=== PATIENT | female | born 1990 | race Caucasian/White ===

== ENCOUNTER 2016-06-10 03:17 | Inpatient (IN) | payer OTHER ==
[~2016-06-10] VITALS: Ht 160 cm; Wt 80.7 kg
[2016-06-10] MEDS ORDERED: Oxytocin 30 Units/500 mL LR 30 UNITS in IV Premix 1 EACH IV PRN ×2 (03:50→12:50)
[2016-06-10] MEDS ORDERED: Carboprost 250 mCg/mL Inj IM PRN ×2 (03:50→12:50)
[2016-06-10] MEDS ORDERED: Oxytocin 10 Unit/mL Inj IM PRN ×2 (03:50→12:50)
[2016-06-10] MEDS ORDERED: Hemorrhage Kit, Post Partum XX ONE ×2 (03:50→12:50)
[2016-06-10] MEDS ORDERED: Sodium Chloride LOK Flush 10 mL Syringe IVFLUSH PRN (03:50)
[2016-06-10] MEDS ORDERED: Methylergonovine 0.2 mg/mL Inj IM PRN ×2 (03:50→12:50)
[2016-06-10] MEDS: Lactated Ringer's 1,000 ML IV PRN ×2 (04:27→05:34)
[2016-06-10 04:51] LABS: Mean Corpuscular Hemoglobin 27.5 pg (27.0-35.0); Mean Corpuscular Volume 86.3 fL (81-100)
--- NOTE | 2016-06-10 05:16 | PCM.HPANE ---
Patient Data Surgeon Admitting Provider:Navya Ceja MD Attending Provider:Navya Ceja MD Primary Care Physician:Navya Ceja MD Other Provider:Aren Amaro Anesthesia Reason for Visit Term Labor TERM LABOR Ht/WT & BMI Body Mass Index Allergies Coded Allergies: No Known Allergies (Unverified , 11/23/15) Diabetes History Hx Diabetes?: No History Cardiovascular History: Denies:: Congestive Heart Failure Hypertension Respiratory History: Denies:: Tuberculosis Hx Surgeries?: Yes (TRACH due to Xochitl Solorio.) Hx Diabetes: No Hx Alcohol Use: YesHx Substance Use: No Smoking Status: Never Smoker Stop/Bang Risk Assessment Category Category 1A: Patient has history of documented sleep apnea, and HAS NOT received any narcotic, sedative or anesthesia administration during this stay. Category 1B: Patient has history of documented sleep apnea, and HAS received any narcotic , sedative or anesthesia administration during this stay Category 2: Patient has SUSPECTED Obstructive Sleep Apnea, and HAS received any narcotic , sedative or anesthesia administration during this stay. Category 3: Patient has SUSPECTED Obstructive Sleep Apnea and HAS NOT received narcotic, sedative or anesthesia administration during this stay. Category 4: Outpatient in Procedural Areas with known sleep apnea or who screen positive for High Risk via the STOP/BANG questionnaire. Exam Exam General Appearance: Alert, Oriented X3, Cooperative HEENT/AIRWAY: MP 2, Neck Movement (from), Mouth Opening (wnl) Lungs: Clear to Auscultation Heart: Exam Unremarkable Meds/Labs/Diagnostics Labs Test 06/10/16 04:03 White Blood Count 16.7th/mm3 (3.8-10.1) Red Blood Count 4.00mil/mm3 (3.90-5.20) Hemoglobin 11.0g/dL (12.0-15.6) Hematocrit 34.5% (35.0-46.0) Mean Corpuscular Volume 86.3fL (81-100) Mean Corpuscular Hemoglobin 27.5pg (27.0-35.0) Mean Corpuscular Hemoglobin Concent 31.9% (32.0-37.0) Red Cell Distribution Width 15.8% (12.3-15.4) Platelet Count 238bil/L (150-400) Plan Impression Patient chart reviewed, patient interviewed and anesthestic plan with risks, benefits, and alternatives discussed, and informed consent obtained. ASA Physical Status: ASA2 Mod Systemic Disease Anesthetic Plan: Epidural Bene/Risks/Altern/Consents: Yes HP Complete Prior to Induction: Yes Rigo Sandoval MD Jun 10, 2016 05:16
[2016-06-10] MEDS ORDERED: fentaNYL 2 mCg/mL-Bupivicaine 0.125% 100 mL Premix EPIDURAL ONE (05:40)
[2016-06-10] MEDS ORDERED: fentaNYL 2 mCg/mL-Bupiv 0.125% 100 ML EPIDURAL SCH ×2 (06:45→06:50)
[2016-06-10] MEDS ORDERED: Atropine 1 mg/10 mL (Code) Syringe IVPUSH PRN ×2 (06:45→06:50)
[2016-06-10] MEDS ORDERED: Lactated Ringer's 1,000 ML IV SCH ×2 (06:45→06:47)
[2016-06-10] MEDS ORDERED: EPHEDrine Sulfate 50 mg/mL Inj IVPUSH PRN ×2 (06:45→06:50)
[2016-06-10] MEDS ORDERED: Ondansetron 2 mg/mL 2 mL Inj IVPUSH PRN ×2 (06:45→06:50)
[2016-06-10] MEDS ORDERED: Lactated Ringer's 500 ML IV ONE ×2 (06:45→06:47)
--- NOTE | 2016-06-10 06:50 | PCM.ANEP1 ---
Post Anesthesia Phase 1 PACU Phase 1 Assessment Anesthetic Administered: Epidural Level of Alertness: Awake, talking JUNIOR's with Equal Strength: Yes Pain: No Nausea or Vomiting: No Oxygen Delivery: Room Air Lungs: Normal Air Movement Rigo Sandoval MD Jun 10, 2016 06:50
--- NOTE | 2016-06-10 07:57 | PCM.HPOB ---
Subjective Date of Service: Jun 10, 2016 Referring Provider: Admitting Physician: Navya Ceja MD Primary Care Physician: Navya Ceja MD Attending Physician: Navya Ceja MD Chief Complaint Painful frequent contractions at term History of Present History of Present Illness Patient is a very pleasant 26-year-old who has had regular care and has an EDC of 06/10/2016. She has been into the center several times over the last few days for labor checks and was effacing her cervix and dilating 1-2 cm. heart rate was reactive with baseline in the 120s to 130s and good variability. Over the course of the afternoon and evening yesterday her contractions picked up and were much more painful and frequent. She came to the center after midnight in the early hours and was 4 cm dilated 90% effaced, membranes intact, vertex presentation, and having bloody show. She was admitted and has received an epidural which is working very nicely. Patient was just examined and is 9 cm 100% effaced and vertex is at 0 station. She is not feeling any urge to push. We are currently placing a Peterson catheter to empty her bladder and will leave this and while she labors on down. Pelvis is adequate and heart rate is reactive with baseline in the 120s. There is good hvdf-qb-bjjq variability and no decelerations. Mother is GBS negative and normotensive with no history of gestational diabetes. OB History: (1), Para (0), Term (0), Pre-term (0), ( 0), Living (0) Obstetrical Complications: None Past Medical History Obstetrical History: This is her first and is a planned and wanted baby. Menses are monthly and last around 5 days. They are using condoms for contraception. She has poor tolerance of control pills as the hormones did not agree well with her. Gynecologic History: She has no history of abnormal Pap smears or STDs. 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 She received a tracheotomy and that was removed before discharge. 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 The did give her plasmapheresis. She has fully recovered apart from a mild bilateral foot drop. Surgical History: Tracheotomy is her only previous surgical procedure along with plasmapheresis. Social History: She is single and has a high school graduation. 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 She does not smoke and had a couple of drinks before she realized she was . She denies any street drug use. Hx Tobacco Use: No Hx Alcohol Use: No Hx Substance Use: No Past Family History Living Arrangement: with Family Genetic Screening/Counseling Genetic Screening/Counseling: Negative Baby father-had child w defect: No Review of Systems Constitutional: Y: Change of appitite, Chills, Fever Eyes: Denies: Blurred Vision, Double Vision ENT: Denies: Dental Problems, Dysphagia, Nasal Congestion, Nose Discharge, Ulcers/Sores in Mouth Cardiovascular: Denies: Chest Pain Respiratory: Denies: Cough Gastrointestinal: Denies: Abdominal Pain, Constipation, Diarrhea, Epigastric pain (she is thank you), Nausea, Vomiting Genitourinary: Denies: Dysuria, Hematuria Musculoskeletal: Denies: Back Pain, Neck Pain Skin/Breasts: Denies: Discharge Skin: Denies: Bruising, Jaundice Neurological: Denies: Change in Speech, Dizziness Psychologic: Denies: Agitation, Anxious, Depression Hematologic: Denies: Adenopathy Allergy Coded Allergies: No Known Allergies (Unverified , 11/23/15) Exam Vital Signs Vital Signs Date Time Temp Pulse Resp B/P Pulse Ox O2 Delivery O2 Flow Rate FiO2 06/10/16 06:50 Room Air Constitutional: Well-developed, Well-nourished HEENT: Atraumatic, PERRLA Lungs: Clear to Auscultation, Normal Air Movement Heart: Regular Rate/Rhythm, Normal S1, Normal S2, No Murmurs/Rubs/Gallops Abdomen: Gravid, Normal bowel sounds, Soft, No tenderness, No hepatosplenomegaly Extremities: Pulses Palpable x4, Warm, No Edema Skin: Rashes Neurological/Psychiatric: Alert, Oriented X3, Cooperative, No Acute Distress Neuro: Grossly Neurologically Intact Labs/Diagnostics Labs Her blood type is AB+ with no abnormal antibodies. Her Pap smear was negative. Varicella is non-immune, rubella is immune. RPR was nonreactive, urine culture was negative, hepatitis B surface antigen was negative and HIV was negative. Hepatitis C was less than 0.1 and TSH was low at 0.2-4. GC chlamydia was negative. Her 1 hour GTT was 98. GBS was negative. She had a first trimester ultrasound on 11/25/2015 placing her at 11 wakes with a live intrauterine and no maternal hydronephrosis. There was a right corpus luteum cyst. Patient was also seen at [facility] because of her history of Guillain-Adams. She had several level II ultrasounds which were all entirely normal. The earlier ultrasounds showed a low-lying placenta which was completely resolved and out of the way by 02/03/2016 ultrasound. Maternal Blood Type: AB Hx Rho(D) Immune Globulin: No Antibody Screen: negative Group B Strep Results: Negative Previous Infant with GBS: No Rubella: Immune Lab History: Negative for: Hx Chicken Pox, Hx Gonorrhea, Hx HIV, Hx Herpes, Hx Syphilis OB Intrapartum Assessment/Plan Assessment Patient is a very pleasant 26-year-old at 40 weeks today who has been in prodromal labor the last 1-2 days and presented in active labor overnight. heart rate is reactive with baseline in the 120s to 130s and good beat-to- beat variability. She has received an epidural a couple of hours ago and AROM was done for clear fluid and showed her to be on a percent effaced, 9 cm dilated and vertex at spines. Peterson catheter is being placed and she will be allowed to labor on down and she has no urge to push currently. She has a gynecoid pelvis and estimated weight is 7-1/2 pounds. Vaginal delivery is anticipated. Problems: (1) 40 weeks gestation of Status: Acute ICD Code: Z3A.40 (2) History of Guillain-[place] syndrome Status: Resolved ICD Code: Z86.69 Pain Evaluation: Adequate Pain Control Navya Ceja MD Jun 10, 2016 07:56
[2016-06-10] MEDS ORDERED: Sodium Chloride LOK Flush 10 mL Syringe IVFLUSH SCH ×2 (08:30)
[2016-06-10] MEDS ORDERED: Benzocaine (Dermoplast) 20% 60 Gm Spray TOPICAL PRN (12:50)
[2016-06-10] MEDS ORDERED: LANOlin HPA 7 Gm Ointment TOPICAL PRN (12:50)
[2016-06-10] MEDS: Lactated Ringer's 1,000 ML IV SCH ×2 (12:50→20:50)
[2016-06-10] MEDS ORDERED: HYDROcodone-APAP 5-325 mg Tablet PO PRN (12:50)
[2016-06-10] MEDS ORDERED: Witch Hazel-Glycerin Pads TOPICAL PRN (12:50)
--- NOTE | 2016-06-10 12:59 | PCM.OBVAG ---
Vaginal Delivery Date of Service Jun 10, 2016 Pre Operative Diagnosis Pre Operative Diagnosis 1. at 40 weeks with spontaneous labor 2. History of Guillain-Rader syndrome 3. Epidural analgesia 4. Spontaneous vaginal delivery of a live born male Post Operative Diagnosis Post Operative Diagnosis 1. at 40 weeks gestational age with spontaneous labor 2. History of Guillain-Rader syndrome 3. Epidural analgesia 4. Spontaneous vaginal delivery of a live born male infant Procedure Obstetical Procedure: Normal Spontaneous Vaginal Delivery, Episiotomy, Repair of Perineal Tear (1st degree) Rest Room Matron/Patient Services Specialist Provider and Patient Services Specialist: Dr. Navya Ceja Indication for Procedure Induction: Active labor, AROM, Progressed normally through labor Findings Obstetrical Findings: (Male), Cord (3 Vessel), Presentation (SCARLET), 1 minute (7), 5 minutes (9), Placenta (Intact/Normal) Analgesia/Medications Obstetrical Anesthesia: Epidural Procedure Details Procedure Details Patient is a pleasant 26-year-old with an EDC of 06/10/2016. She has had regular care and has been into the center several times the last couple of days with prodromal labor. Her contractions picked up a lot over the afternoon and evening and she started with regular painful contractions just before midnight. She came to the center in the early hours of 06/10/2016 and was 4 cm dilated, vertex presentation, 90% effaced, and nannette regularly. She had an epidural placed which worked very nicely her. Her first stage of labor was 11 hours, second stage was 2 hours and 7 minutes, third stage was 6 minutes. She reached complete dilation at 1000 hrs. but was allowed to labor down for one hour. She only pushed just over an hour and brought the baby down nicely. She went onto spontaneous vaginal delivery of a live born male with Apgars of 8 at 1 minute and 9 at 5 minutes. weight is pending at time of this dictation but he is clinically 7-1/2 pound range. There was a loose nuchal cord that the baby delivered through and there was some terminal meconium. Fluid had otherwise remained clear throughout labor and delivery. The baby had developed some early decelerations as well as some variable decelerations down to the 80s as the head was descending. Variability remained good and he tolerated labor well. Baby was born at 12:07 hrs and the placenta delivered at 12:13 hrs. the placenta was intact with a three-vessel cord and my estimated blood loss at time of delivery was 350 mils. Mother had a very tight hymen and had a first-degree tear of the right labia along this area. I also cut a second-degree midline episiotomy to help facilitate delivery of the head and there was no extension of this. The first- degree tear was repaired with 4-0 Vicryl and the second-degree episiotomy was repaired with 3-0 chromic to achieve good cosmesis and hemostasis. Mom is breast-feeding her baby at this time and routine care is anticipated for both of them. GBS was negative. Specimen Placenta was intact and was for routine disposal Blood Loss & Administration Estimated Blood Loss: 350 Blood Admin during procedure: No Post Procedure Plan Post delivery Condition: Mom radha Navya Ceja MD Jun 10, 2016 12:59
--- NOTE | 2016-06-10 17:35 | PCM.ANEP2 ---
Post Anesthesia Evaluation ASA/CMS Post Anesthesia VS in Patient's Normal Range?: Yes Resp Stable; Airway Patent?: Yes CV Function & Hydration Stable: Yes Mental Status Recovered?: Yes Pain control Satisfactory?: Yes N/V Control Satisfactory?: Yes Rafi Roman MD Jun 10, 2016 17:35
[2016-06-11 07:31] LABS: Mean Corpuscular Volume 87.7 fL (81-100)
--- NOTE | 2016-06-11 11:08 | PCM.DC.OB ---
Obstetrical Discharge Summary Date of Service Jun 11, 2016 Date of hospital admission Jun 10, 2016 at 03:48 Date of Discharge: Jun 11, 2016 Providers Admitting Physician: Navya Ceja MD Primary Care Physician: Navya Ceja MD Attending Physician: Navya Ceja MD Diagnosis at Time of Discharge 1. at 40 weeks with spontaneous labor 2. History of Guillan [place] syndrome 3. Epidural analgesia 4. of LBM Problems: (1) 40 weeks gestation of Status: Resolved ICD Code: Z3A.40 (2) History of Guillain-[place] syndrome Status: Resolved ICD Code: Z86.69 (3) (normal spontaneous vaginal delivery) Status: Acute ICD Code: O80 Date of Procedure: Jun 10, 2016 Pathology of LBM infant Brief History and Physical: Patient is a very pleasant 26-year-old who has had regular care and has an EDC of 06/10/2016. She has been into the center several times over the last few days for labor checks and was effacing her cervix and dilating 1-2 cm. heart rate was reactive with baseline in the 120s to 130s and good variability. Over the course of the afternoon and evening yesterday her contractions picked up and were much more painful and frequent. She came to the center after midnight in the early hours and was 4 cm dilated 90% effaced, membranes intact, vertex presentation, and having bloody show. She was admitted and has received an epidural which is working very nicely. Patient was just examined and is 9 cm 100% effaced and vertex is at 0 station. She is not feeling any urge to push. We are currently placing a Peterson catheter to empty her bladder and will leave this and while she labors on down. Pelvis is adequate and heart rate is reactive with baseline in the 120s. There is good shmb-vv-llwa variability and no decelerations. Mother is GBS negative and normotensive with no history of gestational diabetes. Hospital Course: Patient progressed normally thru active labor and the epidural worked well for her. She went onto of LBM with BW 7lbs, and Apgars of 8 and 9. The baby had repetitive variable decels as he was descending with pushing, but recovered well to baseline. He delivered thru a loose loop of nuchal cord and did have some terminal meconium as he was passed onto Mom's tummy. He was vigorous and overall tolerated labor well. In the , Mom has been frequently and she has been up and ambulating. She moved her bowels today, and has not had any issues voiding. Pain control is managed with ibuprofen. She had sustained a first degree R labial tear at delivery, and a 2nd degree midline episiotomy was made to facilitate delivery of the head over her tight hymenal tissues. These are not swollen today, and stitches are clean and intact. She is bonding well with her baby, lochia has been moderate rubra lochia. They are both ready for d/c today. Discharge Medications: Ibuprofen 800mg PO TID prn vitamins 1 tab PO daily while Colace 100mg PO BID prn for constipation Ferrous sulfate 325mg PO once daily Disposition HOme Follow-up plan See Dr Ceja in the office around 6 to 8 weeks to discuss control or any other issues. Discharge Diet: No restrictions Discharge Activity-General: Pelvic Rest for 6 weeks, Try not to overdue, Be up and about, Balance rest and activity, Activity as pain allows, Activity as energy allows Navya Ceja MD Jun 11, 2016 11:08
--- NOTE | 2016-06-11 11:11 | PCM.DIOB ---
Obstetrical Disch Instruction Date of Service: Jun 11, 2016 Dates of Hospitalization Date of Hospital Admission Jun 10, 2016 at 03:48 Providers Admitting Physician: Navya Ceja MD Primary Care Physician: Navya Ceja MD Attending Physician: Navya Ceja MD Discharge Diagnosis Discharge Diagnosis 1. at 40 weeks with spontaneous labor 2. History of Guillan [place] syndrome 3. Epidural 4. of LBM Post Operative diagnosis same as the above Problems: (1) 40 weeks gestation of Status: Resolved ICD Code: Z3A.40 (2) History of Guillain-Whipple syndrome Status: Resolved ICD Code: Z86.69 (3) (normal spontaneous vaginal delivery) Status: Acute ICD Code: O80 Diet Discharge Diet: No restrictions Activity Discharge Activity-General: No restrictions, Pelvic Rest for 6 weeks, Try not to overdue, Be up and about, Balance rest and activity, Activity as pain allows , Activity as energy allows Dressing and Incisional Care Hygiene: May shower, Perineal care, Sitz bath, Dermoplast spray, Witch [place] pads, Ice Follow Up Plan Follow Up Plan Please see Dr. Ceja in the office in 6 weeks for care to discuss contraception and any other concerns you may have. Follow-up Provider (F9): Navya Ceja MD Follow-up appointment: Weeks (6) Call your provider for: Fever or Chills, Shortness of breath, Heavy vaginal bleeding, Epigastric pain, Excessive constipation, Vaginal discomfort, Red painful breasts Navya Ceja MD Jun 11, 2016 11:11
[2016-06-11] MEDS ORDERED: FERR-83 PO (11:13)
[2016-06-11] MEDS ORDERED: DOCU-41 PO (11:13)
[2016-06-11] MEDS ORDERED: IBUP800T28 PO (11:13)
[2016-06-11 11:15] VITALS: BP 137/77; PULSE 87; RESP 18
== END 2016-06-11 14:06 | disposition home or self-care (01) | DRG 542 ==
LOC: FBCO 03:17 → FBC 03:48
PROVIDERS: ADMIT Family Medicine; ATTEND Family Medicine
PROC: 10E0XZZ Delivery of Products of Conception, External Approach (ICD-10-PCS; principal; 2016-06-10)
PROC: 0WQN0ZZ Repair Female Perineum, Open Approach (ICD-10-PCS; 2016-06-10)
PROC: 0W8NXZZ Division of Female Perineum, External Approach (ICD-10-PCS; 2016-06-10)
DX: O70.0 First degree perineal laceration during delivery (principal); Z37.0 Single live birth; O26.93 Pregnancy related conditions, unspecified, third trimester; N89.6 Tight hymenal ring; Z86.69 Personal history of other diseases of the nervous system and sense organs; Z3A.40 40 weeks gestation of pregnancy; O69.81X0 Labor and delivery complicated by cord around neck, without compression, not applicable or unspecified